=== PATIENT | male | born 1990 | race Caucasian/White ===

== ENCOUNTER 2016-12-24 15:41 | Inpatient (IN) | payer OTHER ==
[~2016-12-24] VITALS: Ht 172.7 cm; Wt 78.3 kg
--- NOTE | 2016-12-24 16:40 | NUR ---
26 year old MALE admitted to room # 512 for stabilization. Reports an addiction to IV HEROIN last used 14 hours prior to admission. Compliant with admission procedure. Patient denies any anxiety, but is unable to sit still, taps toes to floor continuously, looks about room, unable to focus eyes on nurse during interview. See assessment forms for additional information about patient status.
[2016-12-24 17:01] LABS: BASO # 0.1 10*3/uL (0.0-0.1); BASO % 0.8 % (0.0-1.0); EOS # 0.4 10*3/uL (0.0-0.4); EOS % 4.3 % (1.0-4.0); HEMATOCRIT 41.9 % (42.0-52.0); HEMOGLOBIN 14.6 g/dl (14.0-18.0); LYMPH # 2.8 10*3/uL (1.3-4.4); LYMPH % 27.9 % (27.0-41.0); MEAN CELL VOLUME 90.9 fl (80.0-94.0); MEAN CORPUSCULAR HGB 31.7 pg (27.0-31.0); MEAN CORPUSCULAR HGB CONC 34.8 g/dl (33.0-37.0); MONO # 0.9 10*3/uL (0.1-1.0); NEUT # 5.7 10*3/uL (2.3-7.9); NEUT % 57.7 % (47.0-73.0); PLATELET COUNT AUTOMATED 296 10*3/uL (130-400); RED BLOOD COUNT 4.61 10*6/uL (4.50-5.90); RED CELL DISTRI WIDTH 12.1 % (0-14.5); WHITE BLOOD COUNT 9.9 10*3/uL (4.8-10.8)
--- NOTE | 2016-12-24 17:02 | NUR ---
Pt refuses flu shot.
[2016-12-24 17:14] VITALS: BP 133/70
[2016-12-24 17:16] LABS: ALBUMIN 3.8 gm/dl (3.1-4.5); ALKALINE PHOSPHATASE 66 U/L (45-117); BUN 10 mg/dl (7-24); CHLORIDE 106 mmol/L (98-107); ETHYL ALCOHOL < 3.0 mg/dl (<3); POTASSIUM 3.8 mmol/L (3.5-5.1); SGOT/AST 28 IU/L (3-35); SGPT/ALT 40 U/L (12-78); SODIUM 139 mmol/L (136-145); TOTAL PROTEIN 7.5 gm/dL (6.4-8.2)
[2016-12-24 17:37] LABS: BILIRUBIN NEGATIVE (NEGATIVE); BLOOD NEGATIVE (NEGATIVE); CLARITY SL CLOUDY (CLEAR); COLOR YELLOW (YELLOW); GLUCOSE NEGATIVE (NEGATIVE); KETONE NEGATIVE (NEGATIVE); LEUKO ESTERASE NEGATIVE (NEGATIVE); NITRITE NEGATIVE (NEGATIVE); PH 5.5 (5.0-9.0); SPECIFIC GRAVITY >= 1.030 (1.005-1.030); UROBILINOGEN 0.2 E.U./dl (0.2-1.0)
[2016-12-24 17:46] LABS: URINE AMPHETAMINES < 1000 (1000ng/ml); URINE BARBITURATES < 200 (200ng/ml); URINE BENZODIAZEPINES < 200 (200ng/ml); URINE CANNABINOIDS (THC) < 50 (50ng/ml); URINE COCAINE < 300 (300ng/ml); URINE METHADONE < 300 (300ng/ml); URINE OPIATES < 300 (300ng/ml)
[2016-12-24 17:47] LABS: URINE PHENCYCLIDINE < 25 (25ng/ml)
[2016-12-24 17:49] LABS: EPITHELIAL CELLS 0-2; RBC 0-2 rbc/hpf (0-2)
[2016-12-24 17:50] LABS: BACTERIA TRACE; MUCOUS TRACE
--- NOTE | 2016-12-24 19:58 | NUR ---
PT MEDICATED WITH PRN BENTYL AND REQUIP FOR C/O RLS AND STOMACH CRAMPS. PT RESTING QUIETLY IN BED AT THIS TIME.
[2016-12-24 20:15] VITALS: BP 130/72
--- NOTE | 2016-12-24 21:06 | NUR ---
24 HR chart check completed.
--- NOTE | 2016-12-24 21:45 | NUR ---
PT RESTING QUIETLY IN BED WITH TV AND LIGHTS OFF. NO C/O VOICED. DENIES NEED FOR NICOTROL INHALER AT THIS TIME. DOOR CLOSED PER PT REQUEST.
--- NOTE | 2016-12-24 23:38 | NUR ---
PT RESTING QUIETLY IN BED. C/O DIAPHORESIS. THERMOSTAT TURNED DOWN TO COOL. WILL CONT. TO MONITOR PT.
[2016-12-25] VITALS: BP 132/84
--- NOTE | 2016-12-25 04:29 | NUR ---
PT MEDICATED WITH PRN VISTARIL FOR C/O ANXIETY.
[2016-12-25 08:00] VITALS: BP 129/78
--- NOTE | 2016-12-25 08:06 | NUR ---
PT GIVEN MOTRIN FOR ACHES IN LEGS. PT STATES PAIN LEVEL IS A 5/10.
--- NOTE | 2016-12-25 08:45 | NUR ---
PT STATES PAIN LEVEL IS 3/10 AFTER RECEIVING MOTRIN FOR ACHES.
[2016-12-25 12:00] VITALS: BP 145/90
--- NOTE | 2016-12-25 12:42 | NUR ---
D/C PLANNING: PATIENT'S PLAN OF ACTION IS TO GO TO THE [facility] IN [place] FOR THE VIVITROL SHOT. PATIENT MAY NEED TRANSPORTATION SET UP THROUGH HIS INSURANCE. PATIENT WILL KEEP NEW VISION STAFF UPDATED. PATIENT AGREES AND UNDERSTANDS HIS AFTERCARE PLAN. 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
[2016-12-25 16:00] VITALS: BP 137/82
--- NOTE | 2016-12-25 19:30 | NUR ---
PT. AWAKE, ALERT, AND ORIENTED X 3. DENIES SOB, CP, V/D. PT. C/O OF SLIGHT NAUSEOUS FEELING. REQUESTED ZOFRAN AND SLEEP AIDE CLOSER TO MIDNIGHT. CALL LIGHT WITHIN REACH, WHEELS LOCKED, BED IN LOWEST POSITION. SEE SHIFT ASSESSMENT.
[2016-12-25 20:00] VITALS: BP 130/81
--- NOTE | 2016-12-25 21:06 | NUR ---
PT. GIVEN MOTRIN AT THIS TIME FOR PAIN IN LOWER EXTREMITIES RATED 7/10. LOWER EXTREMITIES FREE OF REDNESS, SWELLING. WILL ASSESS EFFECTIVENESS.
--- NOTE | 2016-12-25 21:45 | NUR ---
PT. STATED PAIN OF 2/10 AFTER MOTRIN ADM.
--- NOTE | 2016-12-25 23:13 | NUR ---
PT. GIVEN TRAZADONE AND ZOFRAN FOR C/O NAUSEA AND SLEEPLESSNESS. WILL ASSESS FOR EFFECTIVENESS.
[2016-12-26] VITALS: BP 122/66
--- NOTE | 2016-12-26 07:50 | NUR ---
PT GIVEN REQUIP FOR RESTLESS LEGS AT 0748.
[2016-12-26 08:00] VITALS: BP 133/91
[2016-12-26 12:00] VITALS: BP 129/70
[2016-12-26 16:00] VITALS: BP 149/98
[2016-12-26 20:00] VITALS: BP 120/82
--- NOTE | 2016-12-26 20:56 | NUR ---
Patient displaying withdrawal symptoms, including: irritability, anxiousness, restlessness and agitation. Scheduled/PRN medications provided, SEE EMAR. Will continue to monitor medication effectiveness.
--- NOTE | 2016-12-26 22:00 | NUR ---
Patient resting. Responding to scheduled medications with fewer complaints of pain and anxiety.
[2016-12-27] VITALS: BP 128/86
--- NOTE | 2016-12-27 | NUR ---
Patient SLEEPING. Responding to scheduled medications with fewer complaints of pain and anxiety.
--- NOTE | 2016-12-27 06:00 | NUR ---
Patient resting. Responding to scheduled medications with fewer complaints of pain and anxiety.
[2016-12-27 08:00] VITALS: BP 126/76
--- NOTE | 2016-12-27 10:59 | NUR ---
PT DISCHARGED TO OUTPATIENT DRUG TREATMENT FACILITY.
== END 2016-12-27 10:59 | disposition home or self-care (01) | DRG 897 ==
LOC: 5E 15:41
PROVIDERS: Internal Medicine; ADMIT Emergency Medicine
DX: F11.23 Opioid dependence with withdrawal (principal); B18.2 Chronic viral hepatitis C; M79.1 Myalgia; R10.84 Generalized abdominal pain; F17.210 Nicotine dependence, cigarettes, uncomplicated; Z71.6 Tobacco abuse counseling; Z82.49 Family history of ischemic heart disease and other diseases of the circulatory system; Z84.89 Family history of other specified conditions